=== PATIENT | female | born 1960 | race Caucasian/White ===

== ENCOUNTER 2016-08-25 18:07 | Emergency (ER) | payer BC ==
[2016-08-25 18:25] VITALS: BP 150/89
--- NOTE | 2016-08-25 20:36 | EDM.PDOC ---
ED HPI GI/ABDOMINAL - General Chief Complaint: Gastrointestinal Problem Stated Complaint: DIZZINESS, ABDOMINAL PAIN, NAUSEA Time Seen by Provider: 08/25/16 18:33 Source of Information: Reports: Patient, Old records (previous ER visit Feb, 2016) History Limitations: Reports: No limitations - History of Present Illness INITIAL COMMENTS - FREE TEXT/NARRATIVE: Patient presents for evaluation and treatment of left lower quadrant abdominal pain, bloating and bloody stools. Patient reports that this started today. Her current symptoms include left lower quadrant abdominal pain, bloating, bloody stools, fever, decreased appetite and nausea. Patient denies any diarrhea or any vomiting. Patient reports that she had a temp at home of 100. She states that she has not had any diarrhea or constipation. She reports that when she feels urge to defecate or pass gas, she will set up pass a few tablespoons of bright red blood. Patient had a similar episode to this in February 2016. She seen them myself here in the ER. She was treated with ciprofloxacin and Flagyl. A CT was done which showed a nonspecific colitis. Lab studies were done which showed only a mildly elevated white blood cell count and CRP. She states that since being seen she did have a colonoscopy done. She said that she had one polyp removed and she has diverticula, no UC or crohn's appreciated on colonscopy. Previous abdominal surgeries include 2 C-sections, appendectomy, a stent to the left ureter, lithotripsy, hysterectomy and a left stent ureteral stent removal. Patient is a family history of Crohn's and ulcerative colitis. Patient has a cyst in the left either adnexa or ovary. She has been seeing Dr. Sinclair for this. She states that she is currently seeing Dr. Rogers who is planning on having the cyst removed in the near future. Patient also complains of vertigo. She states that she has had this since about April. She reports worsened symptoms are worsening. She reports that it is worse with movement. Not been evaluated for vertigo Location: [facility]Q - Related Data Allergies/ADRs: Allergies Allergy/AdvReac Type Severity Reaction Status Date / Time acetaminophen [From Ultracet] Allergy Vomiting Verified 03/21/16 10:59 butorphanol [From Stadol] Allergy Disorientat Verified 08/25/16 18:28 ion celecoxib [From Celebrex] Allergy Abdominal Verified 08/25/16 18:28 Pain oxycodone [From Percocet] Allergy Disorientat Verified 08/25/16 18:28 ion tramadol [From Ultracet] Allergy Vomiting Verified 03/21/16 10:59 oxycodone HCl [From Tylox] AdvReac Nausea and Verified 05/05/14 12:32 Vomiting propoxyphene napsylate AdvReac Hallucinati Verified 05/05/14 12:32 [From Darvocet-N] ons Home Meds: Home Meds Biotin 1,000 mcg PO DAILY 03/21/16 [History] FLUoxetine HCl [Fluoxetine HCl] 40 mg PO DAILY 03/21/16 [History] HYDROmorphone [Dilaudid] 1 mg PO Q4H PRN 03/21/16 [History] Lisinopril/Hydrochlorothiazide [Lisinopril-Hctz 20-12.5 mg Tab] 1 each PO DAILY 03/21/16 [History] Morphine Sulfate [Morphine Sulfate ER] 30 mg PO BID 03/21/16 [History] Orphenadrine [Norflex] 0.5 - 1 tab PO BID PRN 03/21/16 [History] carBAMazepine [Carbamazepine] 100 mg PO BID 03/21/16 [History] Ciprofloxacin [Ciprofloxacin HCl] 500 mg PO BID #20 tablet 08/25/16 [Rx] SUMAtriptan [Imitrex] 50 mg PO Q2H PRN 08/25/16 [History] metroNIDAZOLE [Flagyl] 500 mg PO Q8H #30 tablet 08/25/16 [Rx] Past Medical History Cardiovascular History: Reports: Hypertension Gastrointestinal History: Reports: Chronic constipation 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: Polycystic Ovaries Musculoskeletal History: Reports: Back pain, chronic Neurological History: Reports: Migraines Psychiatric History: Reports: Depression - Past Surgical History Cardiovascular Surgical History: Reports: None GI Surgical History: Reports: Appendectomy Female Surgical History: Reports: Hysterectomy Neurological Surgical History: Reports: None Social & Family History - Tobacco Use Smoking Status *Q: Current Every Day Smoker Years of Tobacco use: 20 Packs/Tins Daily: 0.5 Used Tobacco, but Quit: No Second Hand Smoke Exposure: No - Caffeine Use Caffeine Use: Reports: Soda - Recreational Drug Use Recreational Drug Use: No ED ROS GENERAL - Review of Systems Review Of Systems: See Below Constitutional: Reports: fever, decreased appetite. Denies: chills HEENT: Reports: Vertigo, Other (denies tinnitus). Denies: Ear pain GI/Abdominal: Reports: Abdominal pain (LLQ), Bloody stool, Other (abdominal bloating). Denies: Distension, Melena, Nausea, Vomiting Neurological: Reports: dizziness ED EXAM, GI/ABD - Physical Exam Exam: See Below Exam Limited By: No limitations General Appearance: alert, WD/WN, no apparent distress Ears: normal external exam, normal canal, hearing grossly normal, normal TMs Nose: normal inspection Throat/Mouth: Normal inspection, Normal lips, Normal voice, No airway compromise Respiratory/Chest: no respiratory distress, lungs clear, normal breath sounds Cardiovascular: normal peripheral pulses, regular rate, rhythm, no murmur GI/Abdominal: normal bowel sounds, soft, tenderness (LLQ). No: rebound, McBurney's sign, obturator sign Rectal (Female) Exam: Deferred (done in 2015), Bloody stool Neurological: alert, oriented, normal cognition Psychiatric: normal affect, normal mood Skin Exam: Warm, Dry, Normal color Course - Vital Signs Last Recorded V/S: Last Vital Signs Temp 36.9 C 08/25/16 18:20 Pulse 107 H 08/25/16 18:20 Resp 20 08/25/16 18:20 BP 150/89 H 08/25/16 18:20 Pulse Ox 99 08/25/16 18:20 - Orders/Labs/Meds Labs: Laboratory Tests 08/25/16 08/25/16 Range/Units 19:32 19:32 WBC 9.18 (3.98-10.04) K/mm3 RBC 3.92 L (3.98-5.22) M/mm3 Hgb 12.6 (11.2-15.7) gm/L Hct 36.0 (34.1-44.9) % MCV 91.8 (79.4-94.8) fl MCH 32.1 (25.6-32.2) pg MCHC 35.0 (32.2-35.5) g/dl RDW Std Deviation 38.8 (36.4-46.3) fL Plt Count 206 (182-369) K/mm3 MPV 8.6 L (9.4-12.3) fl Neutrophils % (Manual) 69 H (40-60) % Band Neutrophils % 0 (0-10) % Lymphocytes % (Manual) 19 L (20-40) % Atypical Lymphs % 0 % Monocytes % (Manual) 12 H (2-10) % Eosinophils % (Manual) 0 L (0.7-5.8) % Basophils % (Manual) 0 L (0.1-1.2) Platelet Estimate Adequate Plt Morphology Comment Normal RBC Morph Comment Normal Sodium 138 (136-145) mEq/L Potassium 3.5 (3.5-5.1) mEq/L Chloride 100 (98-107) mEq/L Carbon Dioxide 26 (21-32) mEq/L Anion Gap 15.5 H (5-15) BUN 14 (7-18) mg/dL Creatinine 0.9 (0.55-1.02) mg/dL Est Cr Clr Drug Dosing 64.30 mL/min Estimated GFR (MDRD) > 60 (>60) mL/min BUN/Creatinine Ratio 15.6 (14-18) Glucose 96 (74-106) mg/dL Calcium 8.7 (8.5-10.1) mg/dL Total Bilirubin 0.4 (0.2-1.0) mg/dL AST 20 (15-37) U/L ALT 31 (14-59) U/L Alkaline Phosphatase 97 (46-116) U/L C-Reactive Protein 5.6 H* (<1.0) mg/dL Total Protein 7.3 (6.4-8.2) g/dl Albumin 3.5 (3.4-5.0) g/dl Globulin 3.8 gm/dL Albumin/Globulin Ratio 0.9 L (1-2) Meds: Medications Discontinued Medications Generic Name Dose Route Start Last Admin Trade Name Freq PRN Reason Stop Dose Admin Levofloxacin 500 mg 08/25/16 20:43 08/25/16 20:48 Levaquin PO 08/25/16 20:44 500 mg ONETIME ONE Administration Metronidazole 500 mg 08/25/16 20:43 08/25/16 20:48 Flagyl PO 08/25/16 20:44 500 mg ONETIME ONE Administration - Re-Assessments/Exams Free Text/Narrative Re-Assessment/Exam: 08/25/16 20:25 Patient did have a bloody bowel movement while in the ER. Minimal stool present , mostly bright red blood, estimates of 1-2 tbls of blood. Labs returned. White blood count is normal at 9.18 with no bands. Is 2.6 and platelets are 26. CRP is elevated at 5.6. Sodium is 138, potassium 3.5 and chloride is 100. Anion gap is 15.5. Will treat for a probable diverticulitis with ciprofloxacin and Flagyl. First dose of Tridil and Levaquin will be given here in the ER she denies available to us. We'll discharge him at this time. Discharge instructions as documented. Departure - Departure Time of Disposition: 20:33 Disposition: Home, Self-Care 01 Condition: fair Clinical Impression: Colitis Prescriptions: Ciprofloxacin [Ciprofloxacin HCl] 500 mg PO BID #20 tablet metroNIDAZOLE [Flagyl] 500 mg PO Q8H #30 tablet Instructions: Colitis Referrals: Lauren Stuart MD [Primary Care Provider] - Forms: ED Department Discharge Additional Instructions: Rest and drink plenty of fluids. Antibiotics as prescribed. cipro 1 tab PO bid and flagyl 1 tab PO tid x 10 days. [place] diet, may advance to a normal diet as tolerated. Follow-up with PCP next week if not better. Please return to the ER should symptoms change or worsen.
[2016-08-25] MEDS ORDERED: metroNIDAZOLE 500 MG Tab PO ONE (20:43)
[2016-08-25] MEDS ORDERED: Levofloxacin 250 MG Tab PO ONE (20:43)
--- NOTE | 2016-08-28 07:37 | CR ---
Abdomen: Supine and upright views of the abdomen were obtained. Comparison: No previous abdominal x-ray, previous CT abdomen and pelvis study of 03/21/16 is available. Calcifications are seen within the pelvis most likely representing phleboliths. Scattered degenerative change is noted within the spine with scoliosis. Bowel gas pattern felt to be within normal limits. No free air is seen. No discrete soft tissue abnormality is appreciated. Impression: 1. Incidental findings as noted above. Diagnostic code #2
== END 2016-08-25 20:51 | disposition home or self-care (01) ==
LOC: JD.ED 18:07
DX: K52.9 Noninfective gastroenteritis and colitis, unspecified (principal); I10 Essential (primary) hypertension; G43.909 Migraine, unspecified, not intractable, without status migrainosus; F32.9 Major depressive disorder, single episode, unspecified; Z90.49 Acquired absence of other specified parts of digestive tract; Z79.899 Other long term (current) drug therapy; Z90.710 Acquired absence of both cervix and uterus; F17.210 Nicotine dependence, cigarettes, uncomplicated; Z88.6 Allergy status to analgesic agent; Z88.8 Allergy status to other drugs, medicaments and biological substances
CPT/HCPCS: 36415; 74020; 80053; 85025; 86140; 99284; A9270; 99283

== ENCOUNTER 2016-09-20 07:08 | Day surgery (SDC) | payer BC ==
[~2016-09-20 07:08] MED LIST: Lactated Ringers 1,000 ML IV SCH; Lidocaine 1%/Sod Bicarbonate in NS 8.4% 1 ML Syringe IV PRN; Sodium Chloride 0.9% 10 ML Syringe FLUSH PRN
[2016-09-20] MEDS ORDERED: Propofol 200 MG/20 ML SDV ONE ×6 (07:14→10:01)
[2016-09-20] MEDS ORDERED: Midazolam 1 MG/ML 2 ML SDV ONE (07:14)
[2016-09-20] MEDS ORDERED: Lidocaine 1% 4 ML ONE (07:14)
[2016-09-20] MEDS ORDERED: fentaNYL 250 MCG/5 ML SDV ONE (07:14)
[2016-09-20] MEDS ORDERED: Dexamethasone 4 MG/ML 5 ML MDV ONE (07:14)
[2016-09-20] MEDS ORDERED: Rocuronium 50 MG/5 ML Vial ONE (07:14)
[2016-09-20] MEDS ORDERED: ceFAZolin 1 GM Vial ONE (07:21)
[2016-09-20] MEDS ORDERED: Bupivacaine 0.5% 30 ML SDV ONE (07:41)
--- NOTE | 2016-09-20 07:51 | PCM.PREANE ---
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 " muscle rigidity" after a nephrology procedure in 2002, she had a muscle biopsy done at the [facility] which according to the patient was negative, requesting these records ) Family History of Anesthesia Reaction: No Transfusion History: No Prior Transfusion(s) - Review of Systems General: No Symptoms Pulmonary: No Symptoms Neurological: Other (trigeminal neuralgia ) - Physical Assessment NPO Status Date: 09/19/16 NPO Status Time: 23:45 Pulse: 80 O2 Sat by Pulse Oximetry: 96 Respiratory Rate: 16 Blood Pressure: 144/84 Temperature: 98.8 C Height: 1.65 m Weight: 86.183 kg ASA Class: 3 Mental Status: Alert & Oriented x3 Airway Class: Mallampati = 1 Dentition: Reports: Normal Dentition Thyro-Mental Finger Breadths: 3 Mouth Opening Finger Breadths: 5 ROM/Head Extension: Full Lungs: Clear to auscultation, Normal respiratory effort Cardiovascular: Regular Rate, Regular Rhythm - Lab Values: Reviewed - Allergies Allergies/Adverse Reactions: Allergies Allergy/AdvReac Type Severity Reaction Status Date / Time butorphanol [From Stadol] Allergy Disorientat Verified 09/19/16 16:24 ion celecoxib [From Celebrex] Allergy Abdominal Verified 09/19/16 16:24 Pain oxycodone [From Percocet] Allergy Disorientat Verified 09/19/16 16:24 ion tramadol [From Ultracet] Allergy Vomiting Verified 09/19/16 16:24 oxycodone HCl [From Tylox] AdvReac Nausea and Verified 09/19/16 16:24 Vomiting propoxyphene napsylate AdvReac Hallucinati Verified 09/19/16 16:24 [From Darvocet-N] ons - Blood Blood Available: Yes Product(s) Available: PRBC - Acknowledgements Anesthesia Type Planned: General Anesthesia (TIVA, high flows on vaporizer, CO2 detector changed) Pt an Appropriate Candidate for the Planned Anesthesia: Yes Alternatives and Risks of Anesthesia Discussed w Pt/Guardian: Yes Pt/Guardian Understands and Agrees with Anesthesia Plan: Yes PreAnesthesia Questionnaire HEENT History: Reports: None Cardiovascular History: Reports: Hypertension Respiratory History: Reports: Other (see below) Other Respiratory History: URI Gastrointestinal History: Reports: Chronic constipation Genitourinary History: Reports: Renal calculus, Urinary incontinence, Other ( see below) Other Genitourinary History: uretal stent placement, kidney calculus, lithotripsy 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 (see below) Other OB/BYN History: L ovarian cyst, , laparoscopy with lysis of adhesions Musculoskeletal History: Reports: Back pain, chronic Other Musculoskeletal History: chronic pain syndrome, low back pain, lumbar degerative disc disease, myofasical pain Neurological History: Reports: Migraines, Vertigo, Other (see below) Other Neuro History: trigeminal neuralgia Psychiatric History: Reports: Anxiety, Depression Endocrine/Metabolic History: Reports: None Hematologic History: Reports: None Immunologic History: Reports: None Oncologic (Cancer) History: Reports: None Dermatologic History: Reports: Psoriasis - Past Surgical History Head Surgeries/Procedures: Reports: None GI Surgical History: Reports: Appendectomy, Colonoscopy Female Surgical History: Reports: section, Hysterectomy, Lithotripsy /ESWL Musculoskeletal Surgical History: Reports: Other (see below) Other Musculoskeletal Surgeries/Procedures:: laminectomy L5-S1. 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 - SUBSTANCE USE Smoking Status *Q: Current Every Day Smoker Tobacco Use Within Last Twelve Months: Cigarettes (5 cig/day) Second Hand Smoke Exposure: No Recreational Drug Use History: No - HOME MEDS Home Medications: Home Meds FLUoxetine [PROzac] 60 mg PO DAILY 09/19/16 [History] HYDROmorphone [Dilaudid] 4 mg PO Q4H PRN 09/19/16 [History] Lisinopril/Hydrochlorothiazide [Lisinopril-Hctz 20-12.5 mg Tab] 0.5 tab PO DAILY 09/19/16 [History] Morphine [MS Contin] 30 mg PO Q12H 09/19/16 [History] Orphenadrine [Norflex] 0.5 - 1 tab PO Q12H PRN 09/19/16 [History] SUMAtriptan [Imitrex] 50 mg PO ASDIRECTED PRN 09/19/16 [History] carBAMazepine [Carbamazepine] 500 mg PO BID 09/19/16 [History] - CURRENT (IN HOUSE) MEDS Current Meds: Current Medications Lactated Ringer's (Ringers, Lactated) 1,000 mls @ 125 mls/hr IV ASDIRECTED DORI Stop: 09/20/16 23:59 Lidocaine/Sodium Bicarbonate (Buffered Lidocaine 1% In Ns 8.4%) 0.25 ml IV ONETIME PRN PRN Reason: Prior to IV Start Stop: 09/20/16 23:59 Sodium Chloride (Saline Flush) 10 ml FLUSH ASDIRECTED PRN PRN Reason: Keep Vein Open Stop: 09/20/16 23:59 Discontinued Medications Bupivacaine HCl (Marcaine 0.5%) Confirm Administered Dose 30 ml .ROUTE .STK-MED ONE Stop: 09/20/16 07:42 Cefazolin Sodium (Ancef) Confirm Administered Dose 2 gm .ROUTE .STK-MED ONE Stop: 09/20/16 07:22 Dexamethasone (Dexamethasone) Confirm Administered Dose 20 mg .ROUTE .STK-MED ONE Stop: 09/20/16 07:15 Fentanyl (Sublimaze) Confirm Administered Dose 250 mcg .ROUTE .STK-MED ONE Stop: 09/20/16 07:15 Lidocaine HCl (Xylocaine-Mpf 1%) Confirm Administered Dose 4 mls @ as directed .ROUTE .STK-MED ONE Stop: 09/20/16 07:15 Midazolam HCl (Versed 1 Mg/Ml) Confirm Administered Dose 2 mg .ROUTE .STK-MED ONE Stop: 09/20/16 07:15 Propofol (Diprivan 20 Ml) Confirm Administered Dose 400 mg .ROUTE .STK-MED ONE Stop: 09/20/16 07:15 Rocuronium Fate (Zemuron) Confirm Administered Dose 50 mg .ROUTE .STK-MED ONE Stop: 09/20/16 07:15 Preanesthetic Assessment - PHYSICAL ASSESSMENT Height: 1.65 m Weight: 86.183 kg - ALLERGIES Allergies/Adverse Reactions: Allergies Allergy/AdvReac Type Severity Reaction Status Date / Time butorphanol [From Stadol] Allergy Disorientat Verified 09/19/16 16:24 ion celecoxib [From Celebrex] Allergy Abdominal Verified 09/19/16 16:24 Pain oxycodone [From Percocet] Allergy Disorientat Verified 09/19/16 16:24 ion tramadol [From Ultracet] Allergy Vomiting Verified 09/19/16 16:24 oxycodone HCl [From Tylox] AdvReac Nausea and Verified 09/19/16 16:24 Vomiting propoxyphene napsylate AdvReac Hallucinati Verified 09/19/16 16:24 [From Gay] ons
[2016-09-20] MEDS ORDERED: Ketamine 500 mg/10 ML MDV ONE (08:54)
[2016-09-20] MEDS ORDERED: HYDROmorphone 1 MG/ML Syringe ONE (08:54)
[2016-09-20] MEDS ORDERED: Lactated Ringers 1,000 ML ONE ×2 (09:09→10:28)
[2016-09-20] MEDS ORDERED: Acetaminophen 325 MG Tab PO ONE (09:10)
[2016-09-20] MEDS ORDERED: Ketorolac 30 MG/ML SDV ONE (09:17)
[2016-09-20] MEDS ORDERED: Ondansetron 4 MG/2 ML SDV ONE (09:17)
[2016-09-20] MEDS ORDERED: Ondansetron 4 MG/2 ML SDV IVPUSH PRN (09:25)
[2016-09-20] MEDS ORDERED: diphenhydrAMINE 50 MG/ML SDV IVPUSH PRN (09:25)
--- NOTE | 2016-09-20 09:40 | PCM.SN ---
- Free Text/Narrative Note: Records were attempted to be obtained from [place] and 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 Patient remembers being told that she woke up with muscle rigidity and temperatures as high as 40 degrees Celsius. Patient states in anesthesia preoperative interview, that she did in-fact have a "muscle biopsy test" at the [facility] after this reaction, and it was deemed to be negative for MH. However, these records were not able to be obtained on the morning of surgery. S[facility]ilvia [place] was unable to find records for the patient either, despite patient being certain that these records were obtained by the surgical center before her colonoscopy a few years prior. It was in the patient's best interest to proceed with a straight TIVA anesthetic due to the lack of documentation in the [facility] system of the events that occurred in the past. The anesthetic machine was flushed for > 10 minutes with 20L/min of flow, charcoal filters where applied and vaporizers were removed from the anesthesia machine. A BIS monitor and core temperature monitoring will be applied. The plan was discussed with the surgical team.
[2016-09-20] MEDS ORDERED: Acetaminophen 1,000 MG/100 ML Infusion Bottle IV ONE (09:44)
[2016-09-20] MEDS ORDERED: Neostigmine Methylsulfate 10 MG/10 ML MDV ONE (09:55)
[2016-09-20] MEDS ORDERED: Glycopyrrolate 0.2 MG/ML 2 ML SDV ONE (09:55)
[2016-09-20] MEDS ORDERED: Albuterol 6.7 GM Inhaler INH ONE (10:28)
[2016-09-20] MEDS ORDERED: Meperidine PF 50 MG/ML Syringe IVPUSH PRN (10:30)
[2016-09-20] MEDS ORDERED: HYDROmorphone 0.5 MG/0.5 ML Syringe IVPUSH PRN (10:30)
[2016-09-20] MEDS: fentaNYL 100 MCG/2 ML SDV IVPUSH PRN ×2 (10:57→12:27)
--- NOTE | 2016-09-20 10:58 | PCM.POSTAN ---
POST ANESTHESIA ASSESSMENT - MENTAL STATUS Mental Status: alert - VITAL SIGNS Pulse Rate: 59 SaO2: 99 Resp Rate: 10 Blood Pressure: 108/57 Temperature: 98.6 C - RESPIRATORY Respiratory Status: respiratory rate WNL, airway patent, O2 saturation stable - CARDIOVASCULAR CV Status: pulse rate WNL, blood pressure stable - GASTROINTESTINAL GI Status: no symptoms - PAIN Pain Score: 0 - POST OP HYDRATION Hydration Status: adequate & stable
--- NOTE | 2016-09-20 11:32 | PCM48HPAN ---
Post Anesthesia Note - EVALUATION WITHIN 48HRS OF ANESTHETIC Vital Signs in Normal Range: Yes Patient Participated in Evaluation: Yes Respiratory Function Stable: Yes Airway Patent: Yes Cardiovascular Function Stable: Yes Hydration Status Stable: Yes Pain Control Satisfactory: Yes Nausea and Vomiting Control Satisfactory: Yes Mental Status Recovered: Yes
[2016-09-20 12:40] VITALS: BP 100/63
--- NOTE | 2016-09-21 16:21 | OR ---
DATE OF OPERATION: 09/20/2016 SURGEON: Dawson Rogers MD PREOPERATIVE DIAGNOSIS: Left lower quadrant pelvic pain, left adnexal cyst. POSTOPERATIVE DIAGNOSIS: Left lower quadrant pelvic pain, left adnexal cyst with severe abdominal adhesions. ANESTHESIA: General endotracheal anesthesia per Madeleine Rosenthal CRNA. MAIL MESSENGER CONTRACTOR: historian research assistant is Magui Jenkins MD. Second gallery assistant is Beverly Armendariz MS-3. OPERATION PERFORMED: Laparoscopy, lysis of pelvic adhesions, left ovarian cystectomy. COMPLICATIONS: None. DRAINS: Nunez catheter during surgery only - Removed at the end of the case. SPECIMENS: Left ovarian cyst sac. ESTIMATED BLOOD LOSS: Approximately 50 mL. FLUIDS: Approximately 2000 mL LR. CONDITION: Good. FINDINGS: The patient was noted to have a 5 cm left ovarian cyst. Left ovary was very severely adhered to left lower quadrant pelvic sidewall. The patient had moderate to significant amount of adhesions involving the omentum anterior to the abdominal wall and to the right pelvic sidewall. This included some wispy adhesions of small intestine to the anterior abdominal wall and the right abdominal sidewall. The patient is status post hysterectomy and status post right oophorectomy. No upper abdominal lesions involving the liver, falciform ligament, or the left right upper diaphragm noted. DESCRIPTION OF PROCEDURE: The patient was taken to the operating room and placed in a supine position on operating table. She received 2 grams of Ancef preoperatively for infection prophylaxis and had sequential compression stockings in place for DVT prophylaxis. After adequate anesthesia, the patient was placed in a dorsal lithotomy position. A Nunez catheter was placed to accomplish adequate bladder drainage and a stick sponge was placed in the vagina. Infraumbilical port site and suprapubic port site were then developed using approximately 5 mL of Marcaine 0.5% each. 5 mm incisions were made and 5 mm ports were placed without problems. The left lateral port 10 mm in size was then placed under direct visualization. This after infiltration with 5 mL of Marcaine. Initial task was to take down the anterior abdominal wall adhesions to allow easier access to the pelvis also. These were done in a series of sharp and blunt dissection. The EthiResponsa endocautery device was used for some of the dissection. This was very tedious and very slow as the bowel approached the anterior peritoneal lining intimately at times. There was felt that no adverse affects occurred as far as the serosa of the small intestines concern. When this was accomplished, the left ovarian cyst was then dissected somewhat free and shelled out of the ovary. At this time, the cystectomy was done as it appeared that the severe adhesions of the left ovary were precluded laparoscopic removal and off the entire ovary and possibly increased the patient's risk for injury. The cyst was eventually ruptured with resultant clear fluid. It looked entirely benign and the cyst wall was peeled out of the ovary and was placed in an EndoCatch bag. This was removed through the 10 mm port. At this time, hemostasis was confirmed. A small amount of blood in the pelvis was aspirated out with an aspirator crystallizer operator device. The sponge and instrument counts were correct, the lower port sites were then removed and pneumoperitoneum was reversed. The fascia on the left side was closed with using a Sriram-Uri CloseSure device with an 0 PDS suture. The skin was closed with interrupted subcuticular sutures of 3-0 Monocryl. All incision sites were further approximated with Dermabond skin glue. At the end of the case, the Nunez catheter was removed as well as the sponge stick. The patient was awakened from general endotracheal anesthesia. She tolerated the procedure well and left the operating room in good condition. ТАТЬЯНА /[id number]
== END 2016-09-20 13:10 | disposition home or self-care (01) ==
LOC: JD.SDS 07:08
PROVIDERS: ATTEND Obstetrics & Gynecology
PROC: 0UB14ZZ Excision of Left Ovary, Percutaneous Endoscopic Approach (ICD-10-PCS; principal; 2016-09-20)
DX: D27.1 Benign neoplasm of left ovary (principal); I10 Essential (primary) hypertension; H81.10 Benign paroxysmal vertigo, unspecified ear; F32.9 Major depressive disorder, single episode, unspecified; F41.9 Anxiety disorder, unspecified; Z79.899 Other long term (current) drug therapy; Z88.6 Allergy status to analgesic agent; Z88.8 Allergy status to other drugs, medicaments and biological substances; Z91.041 Radiographic dye allergy status; G89.4 Chronic pain syndrome; E78.5 Hyperlipidemia, unspecified; F17.200 Nicotine dependence, unspecified, uncomplicated
CPT/HCPCS: 58662; 81001; 87086; 93005; A9270; J0690; J1100; J1170; J1885; J2250; J2405; J2710; J3010; J7120; 00840; J2704; J3490